=== PATIENT | female | born 1995 | race Caucasian/White ===

== ENCOUNTER 2020-06-12 13:10 | Emergency (ER) | payer MEDICAID, SELFPAY ==
[2020-06-12 13:21] VITALS: BP 111/59; PULSE 67; RESP 18; O2SAT 98; BMI 24.7
[2020-06-12] MEDS: ketorolac 60 mg/2 mL INJ IM (13:36)
--- NOTE | 2020-06-12 13:45 | XRR_ITS ---
PROCEDURE INFORMATION: Exam: XR Right Ribs with PA Chest, 3 Views Exam date and time: 06/12/2020 2:04 PM Age: 25 years old Clinical indication: Chest wall pain; Right; Patient HX: Pain under RT breast TECHNIQUE: Imaging protocol: XR Right ribs 3 views with PA chest. COMPARISON: No relevant prior studies available. FINDINGS: Lungs: Mildly hyperaerated lungs consistent with deep inspiratory effort vs mild reactive airway disease. Pleural spaces: Unremarkable. No pleural effusion. No pneumothorax. Heart/Mediastinum: Unremarkable. No cardiomegaly. Bones/joints: Unremarkable. XR/XR ribs RT mn 3V w [id number] IMPRESSION: 1. Mildly hyperaerated lungs consistent with deep inspiratory effort vs mild reactive airway disease. 2. No obvious rib lesion.
--- NOTE | 2020-06-12 13:50 | ED_ITS ---
HPI - General Adult General: Chief complaint: General Medical Stated complaint: Rt side Pecktorial tension/pain Time Seen by Provider: 06/12/20 13:23 History of Present Illness: HPI narrative: 25-year-old female comes in complaining of severe right lateral chest pain worse with movement worse with cough or deep inspirations developed over the last couple of days. She not had any rash. No trauma that she can remember. She not had any cough. She does have difficulty breathing now due to the rib pain but that was not present until the rib pain developed. Onset (ago): day(s) (2) Location: chest Radiation: non-radiation Severity: severe Quality: stabbing and sharp Pain Consistency: intermittent Relieving factors: rest Exacerbating factors: movement Associated symptoms: Reports chest pain; Deny confusion, cough, diaphoresis, decreased appetite, dyspnea, fevers/chills, headache(s), malaise, nausea, rash, palpitations, seizures, short of breath, syn cope, vomiting or weakness Treatments prior to arrival: none Review of Systems Const: Denies: malaise or diaphoresis ENMT: Denies: throat pain, ear or mastoid pain, nasal discharge or nasal congestion Card: Reports: chest pain; Denies: palpitations or syncope Resp: Denies: dyspnea GI: Denies: nausea or vomiting : Denies: flank pain, difficulty voiding, dysuria, urinary frequency or urinary urgency Skin/Breast: Denies: rash Neuro: Denies: headache(s) or confusion Physical Exam Const: COMMON NORMALS: no acute distress GENERAL APPEARANCE: cooperative and comfortable ORIENTATION/CONSCIOUSNESS: Yes awake, Yes oriented to person, Yes oriented to place and Yes oriented to time HENMT: COMMON NORMALS: normocephalic, atraumatic and hearing grossly normal bilaterally HEAD & SCALP: normocephalic and atraumatic Neck/C-Spine: COMMON NORMALS: no JVD Chest: OTHER: Was a tenderness at the level of fifth sixth and seventh ribs with no crepitus no subcutaneous air no skin rash no vesicles no sign of dermatomal rash. Bruising no evidence of trauma no abrasions. Resp: COMMON NORMALS: normal respiratory effort, No retractions, No use of accessory muscles and clear to auscultation bilaterally AUSCULTATION: clear to auscultation bilaterally Cardio: COMMON NORMALS: no JVD, regular rate, regular rhythm and No murmurs present (Cardio) RATE: regular rate RHYTHM: regular rhythm GI: COMMON NORMALS: Soft to palpation and No hepatosplenomegaly present AUSCULTATION: Yes normoactive bowel sounds PALPATION: Yes Soft to palpation, No Tenderness to palpation present (GI), No Guarding due to palpation present (GI) and Yes No hepatosplenomegaly present Extremity: COMMON NORMALS: normal to inspection, capillary refill normal, no clubbing, cyanosis or edema, no calf tenderness and no pedal edema Neuro: SENSORIUM/ORIENTATION: Yes oriented to person, Yes oriented to place and Yes oriented to time Skin: COMMON NORMALS: no rashes or lesions noted GENERAL SKIN EXAM: no rashes or lesions noted Course Vital Signs: Vital signs: Vital Signs Pulse Rate 64 06/12/20 14:36 Respiratory Rate 18 06/12/20 14:36 Blood Pressure 108/63 06/12/20 14:36 Pulse Oximetry 98 06/12/20 14:36 MDM - General Adult MDM Narrative: Medical decision making narrative: Chest x-ray and rib detail do not show anything acute. Treat as intercostal muscle strain work restriction given no lifting greater than 10 pounds no lifting above the level of the shoulders or below the waist follow-up with primary care. Discharge Plan Discharge Patient Disposition: Home Clinical Impression: Rib pain on right side Condition: Stable Prescriptions: New hydrocodone-acetaminophen 5-325 mg tablet 1 tab PO Q6H PRN (Reason: pain) Qty: 20 RF: 0 diclofenac sodium 75 mg tablet,delayed release (DR/EC) 75 mg PO Q12H PRN (Reason: pain) Qty: 20 RF: 0 Discharge Orders: Discharge ED (Routine); Ordered 06/12/20 Ordered By: Khanh Kaur Discharge Diet: Usual diet Discharge Activity: Increase activity as tolerated Activity Restrictions/Additional Instructions: Ice or heat to right lateral ribs as for comfort. Use pain medications as needed if persists follow-up with primary care. If he have any change in symptoms return to the emergency room. 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
[2020-06-12 14:36] VITALS: BP 108/63; PULSE 64; RESP 18; O2SAT 98
== END 2020-06-12 14:36 | disposition home or self-care (01) ==
PROVIDERS: Emergency Provider Family Medicine
DX: R07.81 Pleurodynia (principal)
CPT/HCPCS: 12345; 71101; 96372; 99281; 99283; J1885

== ENCOUNTER 2020-07-09 10:29 | Emergency (ER) | payer MEDICAID, SELFPAY ==
[2020-07-09 10:46] VITALS: BP 104/73; PULSE 96; RESP 16; TEMP 36.4; O2SAT 97; BMI 25.7
[2020-07-09 10:53] VITALS: O2SAT 100
--- NOTE | 2020-07-09 10:53 | XR_ITS ---
WS: [id number] Portable AP upright chest, 07/09/2020 Clinical Data: cough Comparison: AP chest, 06/12/2020. Findings: No nodules, masses or effusions are seen. The heart is normal. The pulmonary vascularity is not increased. No pneumonia or pneumothorax is seen. XR/XR chest 1V portable [id number] Impression: Negative chest.
--- NOTE | 2020-07-09 10:55 | ED_ITS ---
HPI - COVID General: Chief Complaint: COVID symptoms Stated Complaint: COVID SYMPTOMS Time Seen by Provider: 07/09/20 10:37 Triage information: No fever, cough or shortness of breath . No known COVID + exposure last 14 days History of Present Illness: HPI Narrative: Patient is a 25-year-old female who comes to the ED with upper respiratory symptoms. Symptoms started yesterday. She is complaining of having a cough, nasal drainage/congestion and loss of taste and smell. Patient works at [employer] and is unsure of any known Covid positive contacts. She also needs to be tested for Covid for work. Denies any shortness of breath, fevers, nausea/vomiting, abdominal pain, bladder or bowel symptoms. COVID 19 common symptoms: positive non-productive cough, loss of sense of smell and/or taste, throat pain (Mild sore throat) and nasal congestion; negative fever(s), chills, productive cough, dyspnea, fatigue, headache(s), nausea, vom iting or diarrhea COVID 19 other sytmptoms: negative chest pain COVID Results: Nasal/Oral Coronavirus 2019 PCR Pending 07/09/20 11:36 07/09/20 Review of Systems Const: Denies: fever(s), chills or fatigue Eyes: Denies: change in vision or eye discomfort ENMT: Reports: throat pain (Mild sore throat), nasal discharge, nasal congestion and post nasal drip; Denies: odynophagia or ear or mastoid pain Card: Denies: chest pain, palpitations, edema, swelling of feet/ankles, dyspnea on exertion or orthopnea Resp: Reports: non-productive cough; Denies: dyspnea or productive cough GI: Denies: abdominal pain, nausea, vomiting, diarrhea, constipation or hematochezia : Denies: flank pain, dysuria or hematuria Musc: Denies: neck pain, back pain or extremity swelling Skin/Breast: Denies: rash or new lesions Neuro: Denies: headache(s), numbness in extremities or weakness in extremities Physical Exam Const: COMMON NORMALS: no acute distress, patient oriented x3 and alert GENERAL APPEARANCE: cooperative and comfortable HENMT: COMMON NORMALS: normocephalic HEAD & SCALP: normocephalic MOUTH: Normal oral and palatal mucosa present THROAT: posterior oropharynx normal and uvula midline Neck/C-Spine: COMMON NORMALS: supple GENERAL: Yes normal visual inspection Resp: COMMON NORMALS: normal respiratory effort, No retractions, No use of accessory muscles and clear to auscultation bilaterally EFFORT & INSPECTION: Yes able to speak in complete sentences, No tachypneic, No respiratory distress and No labored AUSCULTATION: clear to auscultation bilaterally Cardio: COMMON NORMALS: regular rate, regular rhythm, S1 normal heart sound pr esent, S2 normal heart sound present, No gallops present (Cardio), No clicks present (Cardio), No murmurs present (Cardio) and Peripheral pulses 2+ throughout RATE: regular rate RHYTHM: regular rhythm HEART SOUNDS: S1 normal heart sound present and S2 normal heart sound present PERIPHERAL PULSES: Peripheral pulses 2+ throughout GI: COMMON NORMALS: Normal to inspection, nondistended, normoactive bowel sounds present, Soft to palpation, non-tender and no masses PALPATION: Yes Soft to palpation : COMMON NORMALS: Yes no CVA tenderness BLADDER/KIDNEY EXAM: Yes no CVA tenderness Back/Pelvis: COMMON NORMALS: no CVA tenderness Extremity: COMMON NORMALS: normal to inspection Neuro: COMMON NORMALS: patient oriented x3 and moves all extremities SENSORIUM/ORIENTATION: Yes alert Skin: GENERAL SKIN EXAM: dry skin Course Vital Signs: Vital signs: Vital Signs Temperature 97.6 F 07/09/20 10:46 Pulse Rate 96 07/09/20 10:46 Respiratory Rate 16 07/09/20 10:46 Blood Pressure 104/73 07/09/20 10:46 Pulse Oximetry 100 07/09/20 10:53 MDM - COVID MDM Narrative: Medical decision making narrative: Patient is a 25-year-old female comes to the ED with upper respiratory symptoms. Patient works at [employer] and is unaware if she has been exposed to any COVID-19, but needs to get tested for work. Exam shows a nontoxic healthy female patient in no acute distress or pain. Lungs were clear to auscultation bilaterally. Chest x-ray showed no acute findings. Influenza negative. COVID-19 test pending. Patient diagnosed upper respiratory infection and discharged home and given self quarantine instructions. Told patient that the hospital will be contacting her with results in the next 2 to 3 days. I also recommended that she call back into the hospital to get results if she has not heard back. Return to ED precautions given. Follow-up with PCP in 7 to 10 days for reevaluation. Patient understood agree with plan. Lab Data: Attestation: I reviewed the patient's lab results. Labs: Lab Results 07/09/20 Range/Units 11:36 Influenza Type A A g Negative (Negative) Influenza Type B A g Negative (Negative) Imaging Data: CXR: Attestation: I personally reviewed and interpreted this imaging study as follows: Radiologist's impression: [address] [address] XRay Report Signed Patient: Mynor Villanueva Unit #: [id number] : [id number] Age/Sex: 25 / F ADM Date: 07/09/20 Loc: ER Room/Bed: Attending Dr: Ordering Provider/Ordering MD: Rory Banks Date of Service: 07/09/20 Procedure(s): XR chest 1V portable [id number] Accession Number(s): [id number] Report Number: [id number] WS: [id number] Portable AP upright chest, 07/09/2020 Clinical Data: cough Comparison: AP chest, 06/12/2020. Findings: No nodules, masses or effusions are seen. The heart is normal. The pulmonary vascularity is not increased. No pneumonia or pneumothorax is seen. XR/XR chest 1V portable [id number] Impression: Negative chest. Dictated By: Aleida Maxwell MD Signed By: Aleida Maxwell MD Signed Date/Time: 07/09/20 110 DD/ 1108 COVID Results: Nasal/Oral Coronavirus 2019 PCR Pending 07/09/20 11:36 07/09/20 Discharge Plan Discharge Patient Disposition: Home Clinical Impression: Upper respiratory infection Qualifiers: URI type: unspecified viral URI Qualified Code(s): J06.9 - Acute upper respiratory infection, unspecified Condition: Stable Prescriptions: No Action hydrocodone-acetaminophen 5-325 mg tablet 1 tab PO Q6H PRN (Reason: pain) Qty: 20 RF: 0 diclofenac sodium 75 mg tablet,delayed release (DR/EC) 75 mg PO Q12H PRN (Reason: pain) Qty: 20 RF: 0 Discharge Orders: Discharge ED (Routine); Ordered 07/09/20 Ordered By: Rory Banks Discharge Diet: Regular Discharge Activity: Limit activity as instructed Patient Instructions: Upper Respiratory Infection (ED) Activity Restrictions/Additional Instructions: Follow-up with medical provider as directed in 7-10 days. COVID testing was performed and sent to lab and results will be back in 1 to 2 days. [facility] should contact you to let you know Covid results, but you can also contact [facility] to find out results as well. Self quarantine until you get Covid results. If positive self quarantine for the next 12 days. Take ibuprofen or Tylenol for fevers. Drink plenty of fluids and stay hydrated. Symptom management with [id number] cough and nasal decongestant meds. Return to the ER or your medical provider if condition worsens. Please read and understand discharge instructions. If any questions, please ask Coding Level of Care Code ED Marketing/Sales Person for Eduardo Fwnery Exam Comprehensive
[2020-07-09 12:19] LABS: Influenza A by IFA Negative (Negative); Influenza B by IFA Negative (Negative)
[2020-07-10 19:02] LABS: Coronavirus Test Green County Not Detected
--- NOTE | 2020-07-11 09:12 | PC.NURSE ---
Pt called and notified of negative COVID result.
== END 2020-07-09 12:08 | disposition home or self-care (01) ==
PROVIDERS: Emergency Provider Physician Assistant
DX: J06.9 Acute upper respiratory infection, unspecified (principal)
CPT/HCPCS: 71045; 87635; 87804; 99283

== ENCOUNTER → 2020-10-05 13:56 | Outpatient (BNVA) | payer MEDICAID, SELFPAY | PROVIDERS: Visit Provider Nurse Practitioner Women's Health | DX: Z34.80 Encounter for supervision of other normal pregnancy, unspecified trimester (principal); F15.11 Other stimulant abuse, in remission | CPT/HCPCS: 80307; 81000 ==

== ENCOUNTER → 2020-12-13 10:07 | Outpatient (BNVA) | payer MEDICAID, SELFPAY | PROVIDERS: Visit Provider Obstetrics & Gynecology | DX: Z34.80 Encounter for supervision of other normal pregnancy, unspecified trimester (principal) | CPT/HCPCS: 76805 ==